=== PATIENT | female | born 1955 | race Caucasian/White ===

== ENCOUNTER 2020-02-09 17:16 | Emergency (ER) | payer OTHER ==
[~2020-02-09] VITALS: Ht 170.1 cm; Wt 102.5 kg
[~2020-02-09 17:16] MED LIST: BIAXIN500 MG PO; CLARITIN10 MG PO; CYMBALTA60 MG PO; PLAQUENIL200 MG PO; PROVENTIL0.09 MG/AC IH
[2020-02-09 17:37] LABS: BASO # 0.1 10*3/uL (0.0-0.1); BASO % 0.9 % (0.0-1.0); EOS # 0.2 10*3/uL (0.0-0.4); EOS % 2.4 % (1.0-4.0); HEMATOCRIT 38.4 % (37.0-47.0); LYMPH # 1.9 10*3/uL (1.3-4.4); LYMPH % 20.3 % (27.0-41.0); MEAN CELL VOLUME 93.9 fl (81.0-99.0); MEAN CORPUSCULAR HGB 30.8 pg (27.0-31.0); MEAN CORPUSCULAR HGB CONC 32.8 g/dl (33.0-37.0); MEAN PLATELET VOLUME 11.2 fl (9.6-12.3); MONO # 0.8 10*3/uL (0.1-1.0); MONO % 8.5 % (3.0-9.0); NEUT # 6.4 10*3/uL (2.3-7.9); NEUT % 67.5 % (47.0-73.0); PLATELET COUNT AUTOMATED 225 10*3/uL (130-400); RED BLOOD COUNT 4.09 10*6/uL (4.10-5.10); RED CELL DISTRI WIDTH 12.9 % (0-14.5); WHITE BLOOD COUNT 9.5 10*3/uL (4.8-10.8)
[2020-02-09 17:50] LABS: ACT PARTIAL THROMBO TIME 27.5 SECONDS (20.0-32.1)
[2020-02-09 17:53] LABS: ALBUMIN 3.7 gm/dl (3.1-4.5); ALKALINE PHOSPHATASE 77 U/L (45-117); BUN 64 mg/dl (7-24); CHLORIDE 109 mmol/L (98-107); POTASSIUM 4.5 mmol/L (3.5-5.1); SGOT/AST 18 IU/L (3-35); SGPT/ALT 49 U/L (12-78); SODIUM 137 mmol/L (136-145); TOTAL PROTEIN 7.4 gm/dL (6.4-8.2)
[2020-02-09 17:54] LABS: TROPONIN I < 0.015 ng/ml (<0.045)
[2020-02-09] MEDS ORDERED: METHOCARBAMOL500 M1 PO (18:11)
[2020-02-09] MEDS ORDERED: MACROBID100 M1 PO (18:11)
== END 2020-02-09 19:46 | disposition short-term general hospital (02) ==
LOC: ED 17:16
PROVIDERS: Family Medicine
DX: I44.0 Atrioventricular block, first degree (principal); Z87.891 Personal history of nicotine dependence; Z79.899 Other long term (current) drug therapy